=== PATIENT | male | born 1965 | race Caucasian/White ===

== ENCOUNTER → 2016-08-11 | Outpatient (CLI) | payer MEDICARE | LOC: CT 08-08 09:00 | DX: R06.02 Shortness of breath (principal); R07.9 Chest pain, unspecified | CPT/HCPCS: Q9963 ==

== ENCOUNTER → 2016-11-11 | Outpatient (CLI) | payer MEDICARE | LOC: CT 07:57 | DX: I25.41 Coronary artery aneurysm (principal); I71.2 Thoracic aortic aneurysm, without rupture | CPT/HCPCS: 75635; J7050; Q9963 ==

== ENCOUNTER → 2020-05-30 | Outpatient (CLI) | payer MEDICARE, OTHER ==
[~2020-05-30] MED LIST: ALTACE10 MG PO; ASPIRIN EC81 MG PO; AUGMENTIN 875-1 EACH PO; ECOTRIN325 MG PO; EFFIENT10 MG PO; FLONASE 0.05% N16 GM; FLOXIN 0.3% OTIC5 ML AD; LIPITOR TAB 2020 MG PO; LOPRESSOR 25 MG25 MG PO; NORVASC10 MG PO; OMNICEF 300 MG300 MG PO; PLAVIX 75 MG TA75 MG PO; PRILOSEC OTC20 MG PO; RAMIPRIL1.25 MG PO; XARELTO15 MG PO
== END ==
LOC: HEART 5 08:00
DX: I25.10 Atherosclerotic heart disease of native coronary artery without angina pectoris (principal); R00.1 Bradycardia, unspecified; R06.02 Shortness of breath; R07.9 Chest pain, unspecified; Z95.1 Presence of aortocoronary bypass graft
CPT/HCPCS: 78452; A9502; J2785

== ENCOUNTER 2021-02-19 11:37 | Emergency (ER) | payer MEDICARE ==
[~2021-02-19] VITALS: Ht 170.2 cm; Wt 88.5 kg
== END 2021-02-19 14:28 | disposition home or self-care (01) ==
LOC: ER1 11:37
DX: U07.1 COVID-19 (principal); Z23 Encounter for immunization; I10 Essential (primary) hypertension; E78.5 Hyperlipidemia, unspecified; Z90.89 Acquired absence of other organs
CPT/HCPCS: 99283; M0243

== ENCOUNTER 2021-07-22 19:10 | Emergency (ER) | payer MEDICARE ==
[2021-07-22 20:07] LABS: HEMOGLOBIN 15.4 gm/dl (14.0-17.5); RED BLOOD COUNT 5.2 M/UL (4.20-5.50); WHITE BLOOD COUNT 5.7 K/UL (4.5-11.0)
[2021-07-22 20:46] LABS: BUN/CREATININE RATIO 12 (0-10)
== END 2021-07-23 00:19 | disposition home or self-care (01) ==
LOC: ER1 19:10
PROVIDERS: Family Medicine
DX: M79.81 Nontraumatic hematoma of soft tissue (principal); R07.9 Chest pain, unspecified; I25.10 Atherosclerotic heart disease of native coronary artery without angina pectoris; Z79.01 Long term (current) use of anticoagulants; I51.9 Heart disease, unspecified; E78.5 Hyperlipidemia, unspecified; K21.9 Gastro-esophageal reflux disease without esophagitis; Z79.02 Long term (current) use of antithrombotics/antiplatelets; Z79.899 Other long term (current) drug therapy; Z91.041 Radiographic dye allergy status
CPT/HCPCS: 71045; 73060; 80053; 82550; 82553; 84484; 85025; 85610; 85652; 85730; 86140; 93005; 99284